=== PATIENT | male | born 2000 | race Caucasian/White ===

== ENCOUNTER 2023-12-11 15:21 | Emergency (ER) | payer MEDICAID, SELFPAY ==
--- NOTE | ~2023-12-11 | XR_ITS ---
EXAMINATION: XR CHEST 2 VIEW CLINICAL INFORMATION: Chest pain COMPARISON: 03/24/2009 TECHNIQUE: PA and lateral views of the chest obtained. FINDINGS: The lungs are clear. There are no pleural effusions. The cardiomediastinal silhouette is normal. XR/XR chest 2V IMPRESSION: No acute cardiopulmonary disease.
[2023-12-11 15:30] VITALS: BP 126/78; PULSE 100; RESP 16; TEMP 36.7; O2SAT 97; BMI 28.9
--- NOTE | 2023-12-11 15:30 | ED.GENADULT ---
HPI - General Adult General Chief complaint: Upper Respiratory Symptoms Stated complaint: vomiting,coughing fever Time Seen by Provider: 12/11/23 17:20 Source: patient and family (mother) Mode of arrival: ambulatory Limitations: no limitations History of Present Illness HPI narrative: 23 year old male with pmhx significant for asthma presents to the ED today for evaluation of subjective fevers and cough x2 weeks. Admits that he began coughing so hard today he began to vomit. Endorses his vomit is brown in color. Denies hematemesis. He has been taking Tylenol at home without relief. Last dose of Tylenol was at 1300 today. Denies sore throat, sputum production, nausea, abdominal pain, diarrhea, constipation, flank pain, dysuria, hematuria. Denies recent travel or long car rides. Denies known tick or insect bites. Denies known sick contacts. Denies ever having these symptoms previously. Related Data Previous Rx's Medication Instructions Recorded benzonatate 100 mg capsule 100 mg PO BID PRN cough #20 caps 12/11/23 ondansetron 4 mg disintegrating 4 mg PO DAILY PRN nausea and 12/11/23 tablet vomiting 5 days #10 tabs Allergies Allergy/AdvReac Type Severity Reaction Status Date / Time No Known Allergies Allergy Verified 12/11/23 15:35 [No Known Allergies*] Review of Systems Review of Systems: Constitutional: +fever, No chills, fatigue, night sweats, weight changes ENT/Mouth: No ear pain, hearing loss, nasal congestion, sinus pain, rhinorrhea, sore throat Eyes: No eye pain, swelling, redness, vision changes, discharge Cardio: No chest pain, palpitations, , orthopnea, peripheral edema Pulm: No SOB, +cough, No sputum, wheezing, dyspnea, hemoptysis GI: No nausea, +vomiting, hematemesis, abdominal pain, diarrhea, constipation, hematochezia, melena : No irregular bleeding, dysuria, frequency, urgency, hesitancy, hematuria, flank pain, urinary flow changes, urinary incontinence or retention MSK: No back pain, neck pain, joint pain, myalgias Skin: No lesions, rashes Neuro: No weakness, numbness, paresthesias, LOC, dizziness, headache Psych: No anxiety/panic, depression, SI/HI, AH/VH All other systems reviewed and are negative. ON LICENSE OF [facility] Past Medical History Attestation statement: The following information was validated with the patient. Source: old records reviewed and nursing notes reviewed Social History Social History Advance Directives: No Advance Directives Information Provided: No Physical Exam ED Vital Signs: Vital Signs - 24 hr 12/11/23 15:30 Temperature 98.1 F Pulse Rate 100 Respiratory Rate 16 Blood Pressure 126/78 Pulse Oximetry 97 Oxygen Delivery Method Room Air BMI result Body Mass Index 28.9 Vital signs stable, afebrile Const General: cooperative, healthy appearing, comfortable and no acute distress Orientation/consciousness: patient oriented x3 Limitations: no limitations HENMT Head: Yes normal to inspection, Yes No palpable skull fracture present, Yes normocephalic and Yes atraumatic Eyes General: appearance normal, both eyes and all related structures Conjunctivae: conjunctivae normal Sclerae: sclerae normal Pupils: Equal, round and reactive pupils present Neck Neck: Yes normal visual inspection, Yes full ROM and Yes no lymphadenopathy Resp Effort & Inspection: normal respiratory effort Auscultation: clear to auscultation bilaterally Cardio Rate: regular rate Rhythm: regular rhythm GI Other: Soft, nondistended, nontender to palpation, no rebound or guarding. No hepatomegaly. Normoactive bowel sounds x4. Inspection: Yes normal to inspection General: Yes no CVA tenderness Back/Spine/Pelvis Back: no CVA tenderness Skin General skin exam: no rashes or lesions noted Neuro General: patient oriented x3 and gait normal Cranial nerves: Yes Equal, round and reactive pupils present Course Course Course Narrative: RME- 23 year old male presents for weeks of vomiting, fevers, and chills. Plan for labs, UA, viral swabs Reevaluation(s) Reevaluation #1: 1831-- CBC without leukocytosis or anemia. Chemistry without acute electrolyte abnormality requiring intervention. Elevated AST:ALT without priors to compare to. Negative for COVID, flu, RSV. Chest x-ray without signs of pneumonia or effusion. > on re-evaluation, patient reports symptom improvement with zofran and fluids. I informed patient of all work up results. We discussed elevated liver enzymes and patient is declining further work up for this at this time. I do not believe this is contributing to symptoms. Will send kolby and addison prather to pharmacy for symptoms. Discussed worrisome signs and symptoms and when to return to the ED. Patient has remained stable throughout ED visit today. All questions answered at this time. Patient is agreeable with disposition and stable for discharge. Medications Administered Discontinued Medications Generic Name Dose Route Start Last Admin Trade Name Freq PRN Reason Stop Dose Admin Sodium Chloride 1,000 mls @ 999 mls/hr 12/11/23 17:30 12/11/23 17:31 Ns IV 12/11/23 18:30 999 mls/hr .Q1H1M LORENZO Administration Ondansetron HCl 4 mg 12/11/23 17:17 12/11/23 17:20 Ondansetron Odt 4 Mg Tab.Rapdis TRANSLINGU 12/11/23 17:18 4 mg ONCE ONE Administration Medical Decision Making Medical Decision Making [facility] Narrative: 23 year old male with pmhx significant for asthma presents to the ED today for evaluation of subjective fevers and cough x2 weeks. Vital signs stable, afebrile. Patient is nontoxic-appearing and in no acute distress. Abd soft, ND/NT, no rebound or guarding, normoactive BS x4. Differential includes viral syndrome, upper respiratory infection, bronchitis, gastroenteritis Plan for viral serology, labs, CXR, nausea control, and re-evaluation. Differential Diagnosis Differential Diagnoses: The differential diagnosis associated with the presentation includes as above. Lab Data [facility] Lab Attestation statement: I reviewed the patient's lab results. as above. 12/11/23 17:29 12/11/23 17:29 Labs: Lab Results 12/11/23 12/11/23 Range/Units 17:29 17:30 WBC 9.8 (4.8-10.8) X10*3/uL RBC 5.31 (4.60-5.80) X10*6/uL Hgb 15.2 (14.0-18.0) g/dl Hct 46.0 (42.0-52.0) % MCV 86.6 (80.0-98.0) fL MCH 28.6 (27.0-33.0) pg MCHC 33.0 (31.0-36.0) g/dl RDW 12.4 (11.0-16.0) % Plt Count 346 (160-400) X10*3/uL MPV 9.0 L (9.4-12.4) fL Immature Gran % (Auto) 0.9 H (0.0-0.4) % Neut % (Auto) 64.5 (45-73) % Lymph % (Auto) 17.9 L (20-40) % [place] % (Auto) 14.1 H (2-11) % Eos % (Auto) 1.8 (0-4) % Baso % (Auto) 0.8 (0-2) % Lymph # (Auto) 1.8 (1.2-4.9) X10*3/uL [place] # (Auto) 1.4 H (0.1-1.2) X10*3/uL Eos # (Auto) 0.2 (0.0-0.4) X10*3/uL Baso # (Auto) 0.1 (0.0-0.2) X10*3/uL Abs Immat Gran (auto) 0.09 H (0.00-0.03) X10*3/uL Absolute Neuts (auto) 6.3 (2.0-8.3) x10*3/uL Absolute Nucleated RBC 0.000 (0.0-0.012) X10*3/uL Nucleated RBC % (auto) 0.0 (0.0-0.2) /100WBC Sodium 144 (135-145) mmol/L Potassium 4.1 (3.3-5.1) mmol/L Chloride 108 (96-108) mmol/L Carbon Dioxide 26 (22-29) mmol/L Anion Gap 14 (12-20) BUN 8 L (9-16) mg/dL Creatinine 1.00 (0.5-1.4) mg/dL Estim Creat Clear Calc 121.6 Estimated GFR > 60 Random Glucose 79 (60-115) mg/dL Calcium 9.3 (8.4-10.2) mg/dL Total Bilirubin 0.4 (0.0-1.0) mg/dL AST 38 H (5-37) U/L ALT 84 H (0-40) U/L Alkaline Phosphatase 86 (39-117) U/L Total Protein 7.8 (6.5-8.0) g/dL Albumin 4.5 (3.5-5.0) g/dL Lipase 19 (8-78) U/L Influenza Type A (PCR) NEGATIVE (Negative) Influenza Type B (PCR) NEGATIVE (Negative) RSV RNA Qual (PCR) NEGATIVE (Negative) SARS-CoV-2 RNA (RT-PCR) NEGATIVE (Negative) Independent Interpretation I performed an independent interpretation of an: Plain X-Ray Interpretation: Chest x-ray without consolidation or infiltrate, agree with radiologist's interpretation. Radiology Impression Discussion of test interpretation with radiology: I have reviewed the radiologist's reading. Radiologist Impression: XR chest 2V IMPRESSION: No acute cardiopulmonary disease. Independent Historian Clinical information obtained from an independent historian. History obtained from or confirmed by: Parent (mother) External Record Review External record reviewed: Inpatient record, Office record, Outpatient record, Prior outpatient labs, Prior outpatient radiology, Primary care record and Outside ED record Prescription Management I considered prescription management with: Other (Zofran, Tessalon Perles) Social Determinants Patient?s care significantly limited by Social Determinants of Health including: Other Social Determinant of Health Discharge Plan Discharge Clinical Impression: Upper respiratory infection Patient Disposition: Home, Self-Care Instructions: Upper Respiratory Infection (ED) Additional Instructions: Your lab work today is reassuring. Your liver enzymes were elevated however you opted to not have imaging performed today. Please follow-up with your primary care provider regarding this finding. Your chest x-ray is normal. Your blood work was sent off to evaluate for Lyme/tick-borne illness. You will be contacted if these results come back positive. You will be treated accordingly at that time. Zofran as an antinausea medication that has been sent to your pharmacy. Take this as needed for nausea or vomiting. Tessalon Perles have been sent to your pharmacy. Take these as needed for cough. Please return to the ED for new or worsening symptoms. In the case of emergency call 911. Cabrera trabajo de laboratorio de howarren es tranquilizador. Angie enzimas hep?joey estaban elevadas, sin embargo, opt? por no realizarse im?genes hoy. David un seguimiento con cabrera proveedor de atenci?n primaria con respecto a suze hallazgo. Cabrera radiograf?a de t?rax es normal. Cabrera an?lisis de freida fue enviado para evaluar si hay Lyme/enfermedad transmitida por garrapatas. Se le comunicar? si estos resultados son positivos. Ser? tratado en consecuencia en prachi momento. Zofran moon medicamento contra las n?useas que goldstein sido enviado a cabrera farmacia. T?barnett seg?n sea necesario para las n?useas o los v?mitos. Tessalon Perles medina sido enviados a cabrera farmacia. T?melos seg?n sea necesario para la tos. Regrese al servicio de urgencias si los s?ntomas aparecen o empeoran. En adair de emergencia llame al 911. Prescriptions: New ondansetron 4 mg tablet,disintegrating 4 mg PO DAILY PRN (Reason: nausea and vomiting) 5 Days Qty: 10 0RF benzonatate 100 mg capsule 100 mg PO BID PRN (Reason: cough) Qty: 20 0RF Referrals: Melanie Meier PROFILE SAW SETUP OPERATOR [Primary Care Provider] - Interventions: ED Discharge Assessment Last Done: 12/11/23 18:53 Discharge Date/Time: 12/11/23 18:54 Print Language: Amharic
[2023-12-11] MEDS: Ondansetron ODT 4 MG TAB.RAPDIS TRANSLINGU (17:20)
[2023-12-11] MEDS: 0.9 % Sodium Chloride 1,000 ML 999 ML IV (17:31)
[2023-12-11 17:36] LABS: MANUAL DIFF FLAG NO
[2023-12-11 17:45] LABS: Basophils Absolute Auto 0.1 X10*3/uL (0.0-0.2); Basophils Percent Auto 0.8 % (0-2); Eosinophils Absolute Auto 0.2 X10*3/uL (0.0-0.4); Eosinophils Percent Auto 1.8 % (0-4); Hemoglobin 15.2 g/dl (14.0-18.0); Imm Gran Abs Auto 0.09 X10*3/uL (0.00-0.03); Imm Gran Pct Auto 0.9 % (0.0-0.4); Lymphocytes Absolute Auto 1.8 X10*3/uL (1.2-4.9); Lymphocytes Percent Auto 17.9 % (20-40); Mean Corpuscular Hemoglobin 28.6 pg (27.0-33.0); Mean Corpuscular Volume 86.6 fL (80.0-98.0); Monocytes Absolute Auto 1.4 X10*3/uL (0.1-1.2); Monocytes Percent Auto 14.1 % (2-11); Neutrophils Absolute Auto 6.3 x10*3/uL (2.0-8.3); Neutrophils Percent Auto 64.5 % (45-73); Platelet Count 346 X10*3/uL (160-400); Red Blood Count 5.31 X10*6/uL (4.60-5.80); Red Cell Distribution Width 12.4 % (11.0-16.0); White Blood Count 9.8 X10*3/uL (4.8-10.8)
[2023-12-11 17:55] LABS: Alanine Aminotransferase 84 U/L (0-40); Albumin Level 4.5 g/dL (3.5-5.0); Alkaline Phosphatase 86 U/L (39-117); Anion Gap 14 (12-20); Aspartate Amino Transferase 38 U/L (5-37); Bilirubin Total 0.4 mg/dL (0.0-1.0); Blood Urea Nitrogen 8 mg/dL (9-16); Calcium 9.3 mg/dL (8.4-10.2); Carbon Dioxide 26 mmol/L (22-29); Chloride 108 mmol/L (96-108); Creatinine Clr Calc Pharmacy 121.6; Estimated Glomerular Filt Rate > 60; Glucose Random 79 mg/dL (60-115); Lipase 19 U/L (8-78); Potassium 4.1 mmol/L (3.3-5.1); Sodium 144 mmol/L (135-145); Total Protein 7.8 g/dL (6.5-8.0)
[2023-12-11 18:14] LABS: Influenza A PCR NEGATIVE (Negative); Influenza B PCR NEGATIVE (Negative); Resp Syncy Virus RNA Qual PCR NEGATIVE (Negative); SARS COV2 PCR INHOUSE NEGATIVE (Negative)
[2023-12-13 23:28] LABS: Lyme Abs Screen <0.90 index
[2023-12-14 10:44] LABS: A. Phagocytphilium DNA,RT-PCR NOT DETECTED (NOT DETECTED); Babesia Microti DNA, RT-PCR NOT DETECTED (NOT DETECTED); Borrelia Miyamotoi,DNA RT-PCR NOT DETECTED (NOT DETECTED); E.Chaffeensis DNA RT-PCR NOT DETECTED (NOT DETECTED); Lyme(Borrelia ssp)DNA RT-PCR NOT DETECTED (NOT DETECTED)
== END 2023-12-11 18:54 | disposition home or self-care (01) ==
PROVIDERS: Physician Assistant; Physician Assistant Medical; Emergency Provider Emergency Medicine; PCP Nurse Practitioner Primary Care
DX: J06.9 Acute upper respiratory infection, unspecified (principal); R50.9 Fever, unspecified; R05.9 Cough, unspecified; R11.10 Vomiting, unspecified; J45.909 Unspecified asthma, uncomplicated; Z11.52 Encounter for screening for COVID-19; Z20.828 Contact with and (suspected) exposure to other viral communicable diseases
CPT/HCPCS: 0241U; 36415; 71046; 80053; 83690; 85025; 86617; 86618; 87468; 87469; 87478; 87484; 87798; 99283

== ENCOUNTER 2024-05-04 08:56 | Outpatient (REF) | payer MEDICAID, SELFPAY ==
--- NOTE | ~2024-05-04 | XR_ITS ---
EXAMINATION: XR CHEST CLINICAL INFORMATION: Cough for 4 days. Left lower lobe rales. Evaluate for pneumonia. COMPARISON: 12/11/2023 TECHNIQUE: 2 views of the chest were obtained. FINDINGS: Patchy and streaky opacity in the left lower lobe is consistent with pneumonia. No pleural effusion. Cardiomediastinal silhouette has normal size and contour. Pulmonary vascular pattern is normal. The visualized skeletal structures and upper abdomen are unremarkable. XR/XR chest 2V IMPRESSION: Pneumonia of left lower lobe.
== END 2024-05-04 08:57 | disposition home or self-care (01) ==
LOC: HO.HHCX 08:56
PROVIDERS: Visit Provider Family Medicine
DX: R05.1 Acute cough (principal)
CPT/HCPCS: 71046